=== PATIENT | male | born 1970 | race Caucasian/White ===

== ENCOUNTER 2017-01-05 19:53 | Emergency (ER) | payer OTHER ==
[~2017-01-05] VITALS: Ht 175.3 cm; Wt 86.2 kg
--- NOTE | 2017-01-05 20:21 | NUR ---
REFUSED CT SCAN PATEIBNT REFUSED CT SCAN STATED HAD ONE 2 WEEKS AGO AT [facility]
--- NOTE | 2017-01-05 20:26 | ER.PDOC ---
General Chief Complaint: General Complaint Stated Complaint: MUSCLE SPASMS/CRAMPS, PAIN, BLURRY VISION TRAVEL OUT OF US: No Time seen by MD: 20:23 Source: patient Exam Limitations: no limitations History of Present Illness Initial Comments Generalized muscle spasms and twitching for 10 days getting worse. Also blurry vision for more than [address] head done 14 days ago while admitted in [place]. All these symptoms come and go. 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 Severity: moderate Associated Symptoms: denies symptoms Allergies: Uncoded Allergies: iv contrast (Allergy, Unknown, 01/05/17) Past Medical History Medical History: no pertinent history Surgical History: no surgical history Social History Smoking: non-smoker Alcohol Use: none Drug Use: none Review of Systems Constitutional: no symptoms reported Respiratory: no symptoms reported Cardiovascular: no symptoms reported Musculoskeletal: see HPI All Other Systems: Reviewed and Negative Physical Exam General Appearance: No Apparent Distress, WD/WN Neck: Non-Tender, Full Range of Motion, Supple Respiratory: chest non-tender, lungs clear, normal breath sounds, no respiratory distress CVS: reg rate & rhythm, no murmur, no gallop, pulses nml Gastrointestinal: Normal Bowel Sounds, No Organomegaly, No Pulsatile Mass, Non Tender Back: Normal Inspection, No CVA Tenderness Extremities: Normal Range of Motion 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 NML as Tested Results/Orders Results/Orders Laboratory Tests Test 01/05/17 20:30 White Blood Count 5.4 10^3/uL (4.5-11.0) Red Blood Count 4.86 10^6/uL (4.50-5.90) Hemoglobin 15.2 g/dL (13.9-16.3) Hematocrit 43.4 % (37.0-53.0) Mean Corpuscular Volume 89.3 fL (78-100) Mean Corpuscular Hemoglobin 31.3 pg (26-34) Mean Corpuscular Hemoglobin Concent 35.0 g/dL (33-37) Red Cell Distribution Width 12.3 % (11.5-14.5) Platelet Count 201 10^3/uL (150-400) Mean Platelet Volume 9.2 fL (7.8-11.0) Neutrophils (%) (Auto) 41.2 % (41.0-85.0) Lymphocytes (%) (Auto) 45.9 % (24.0-44.0) Monocytes (%) (Auto) 10.1 % (5.0-12.0) Neutrophils # (Auto) 2.2 10^3/uL (1.8-7.7) Lymphocytes # (Auto) 2.5 10^3/uL (1.0-4.8) Monocytes # (Auto) 0.6 10^3/uL (0.3-0.8) Eosinophils % 2.2 % (0.0-5.0) Basophils % 0.6 % (0.0-0.2) Basophils # 0.0 10^3/uL (0.0-0.1) Eosinophil Count 0.1 10^3/uL (0.0-0.2) Sodium Level 140 mmol/L (132-145) Potassium Level 3.8 mmol/L (3.6-5.2) Chloride Level 103.0 mmol/L (96-109) Carbon Dioxide Level 28.2 mmol/L (20.0-32) Anion Gap 12.6 Blood Urea Nitrogen 12 mg/dL (7-18) Creatinine 1.09 mg/dL (0.59-1.40) Estimated GFR () 87.4 BUN/Creatinine Ratio 11.0 Glucose Level 87 mg/dL (70-110) Calculated Osmolality 288.2 Calcium Level 9.4 mg/dL (8.4-10.5) Total Bilirubin 0.2 mg/dL (0.2-1.0) Aspartate Amino Transf (AST/SGOT) 20 U/L (0-35) Alanine Aminotransferase (ALT/SGPT) 35 U/L (12-78) Alkaline Phosphatase 68 U/L (50-136) Total Creatine Kinase 76 U/L (39-308) Total Protein 7.5 g/dL (6.4-8.2) Albumin 3.9 g/dL (3.4-5.0) Globulin 3.6 Departure Time of Disposition: 21:06 Disposition: 01 HOME, SELF-CARE Impression: Primary Impression: Myalgia Condition: Stable Additional Instructions: Baclofen F/U with your PCP in 2-3 days OMID DUDLEY MD Jan 05, 2017 20:26
[2017-01-05 20:42] LABS: BASOPHIL % 0.6 % (0.0-0.2); EOSINOPHIL # 0.1 10^3/uL (0.0-0.2); EOSINOPHIL % 2.2 % (0.0-5.0); HEMATOCRIT 43.4 % (37.0-53.0); HEMOGLOBIN 15.2 g/dL (13.9-16.3); LYMPHOCYTES # 2.5 10^3/uL (1.0-4.8); LYMPHOCYTES % 45.9 % (24.0-44.0); MEAN CELL HGB 31.3 pg (26-34); MEAN CORP VOLUME 89.3 fL (78-100); MEAN PLATELET VOLUME 9.2 fL (7.8-11.0); MONOCYTES # 0.6 10^3/uL (0.3-0.8); MONOCYTES % 10.1 % (5.0-12.0); NEUTROPHIL # 2.2 10^3/uL (1.8-7.7); NEUTROPHILS % 41.2 % (41.0-85.0); PLATELET COUNT 201 10^3/uL (150-400); RED CELL DISTRIBUTION WIDTH 12.3 % (11.5-14.5); WHITE BLOOD CELL 5.4 10^3/uL (4.5-11.0)
[2017-01-05 20:55] LABS: CALCIUM 9.4 mg/dL (8.4-10.5); CARBON DIOXIDE 28.2 mmol/L (20.0-32)
[2017-01-05 21:22] VITALS: BP 142/118
== END 2017-01-05 21:19 | disposition home or self-care (01) ==
LOC: ER 19:53
DX: M79.1 Myalgia (principal); Z91.041 Radiographic dye allergy status
CPT/HCPCS: 36415; 80053; 82550; 85025; 99284